=== PATIENT | female | born 1945 | race Caucasian/White ===

== ENCOUNTER 2021-11-16 02:32 | Inpatient (IN) | payer OTHER ==
[2021-11-16] MEDS ORDERED: FUROSEMIDE 40 MG/4 ML INJECTABLE VIAL IVPUSH ONE ×2 (03:17→10:59)
[2021-11-16 03:50] LABS: BASO % 0.1 % (0-2.0); EOS % 1.1 % (0-4.5); HEMATOCRIT 28.4 % (32.4-45.2); HEMOGLOBIN 9.5 GM/dL (10.7-15.3); LYMPH % 19.3 % (8-40); MCH 27.7 pg (25.7-33.7); MCHC 33.5 g/dl (32.0-36.0); MEAN CELL VOLUME 82.9 fl (80-96); MEAN PLT VOLUME 7.5 fl (7.5-11.1); NEUT % 70.5 % (42.8-82.8); PLATELET COUNT 297 10^3/uL (134-434); RBC 3.43 M/mm3 (3.60-5.2); RDW 17.1 % (11.6-15.6)
[2021-11-16] MEDS ORDERED: FUROSEMIDE 40 MG/4 ML INJECTABLE VIAL ONE ×2 (03:51→09:25)
[2021-11-16 04:01] LABS: INR 1.2 (0.83-1.09); PROTHROMBIN TIME (PATIENT) 13.8 SEC (9.7-13.0)
[2021-11-16 04:12] LABS: CHLORIDE 103 mmol/L (98-107); SODIUM 139 mmol/L (136-145)
[2021-11-16 04:14] LABS: ALBUMIN 3.1 g/dl (3.4-5.0); ANION GAP 6 MMOL/L (8-16); BLOOD UREA NITROGEN 9.7 mg/dL (7-18); CALCIUM 9.2 mg/dL (8.5-10.1); CO2 30 mmol/L (21-32); GLUCOSE,RANDOM 216 mg/dL (74-106)
[2021-11-16 04:17] LABS: SGOT/AST 22 U/L (15-37); SGPT/ALT 39 U/L (13-61)
[2021-11-16 04:18] LABS: CREATININE 0.7 mg/dL (0.55-1.3)
[2021-11-16 04:19] LABS: BILIRUBIN,TOTAL 0.9 mg/dL (0.2-1); TOT PROT 6.9 g/dl (6.4-8.2)
[2021-11-16 04:20] LABS: ALK PHOS 43 U/L (45-117)
[2021-11-16 04:22] LABS: N-TERMINAL BNP 3973.8 pg/ml (5-450)
[2021-11-16] MEDS ORDERED: ASPIRIN 81 MG CHEWABLE TABLETS PO ONE (04:44)
[2021-11-16] MEDS ORDERED: ASPIRIN 81 MG CHEWABLE TABLETS ONE (04:47)
[2021-11-16] MEDS ORDERED: ATORVASTATIN CA 80 MG TABLET (FP) PO ONE (05:14)
[2021-11-16] MEDS ORDERED: ATORVASTATIN CA 80 MG TABLET (FP) ONE (05:22)
[2021-11-16 09:24] LABS: EPI CELLS 6 /uL (0-25.1); HYALINE CASTS 1 /uL (0-3.1); URINE APPEARANCE CLEAR; URINE BACTERIA 27 /uL (0-1359); URINE BILIRUBIN NEGATIVE (NEGATIVE); URINE COLOR YELLOW; URINE GLUCOSE (UA) NEGATIVE (NEGATIVE); URINE KETONE NEGATIVE (NEGATIVE); URINE LEUK ESTERASE NEGATIVE (NEGATIVE); URINE NITRITE NEGATIVE (NEGATIVE); URINE PROTEIN 1+ (NEGATIVE); URINE RBC 16 /uL (0-23.9); URINE WBC 5 /uL (0-25.8)
[2021-11-16] MEDS ORDERED: ENOXAPARIN NA (PORCINE) 40 MG/0.4 ML DISP.SYRIN SQ ONE (09:25)
[2021-11-16] MEDS: INSULIN SLIDING SCALE (NOVOLOG) 1 VIAL SQ SCH ×3 (16:55→23:26)
[2021-11-17 01:11] VITALS: BMI 29.4
[2021-11-17] MEDS: INSULIN SLIDING SCALE (NOVOLOG) 1 VIAL SQ SCH ×4 (06:24→21:24)
[2021-11-17 09:16] LABS: BASO % 0.3 % (0-2.0); EOS % 1.8 % (0-4.5); HEMATOCRIT 26.4 % (32.4-45.2); HEMOGLOBIN 9.1 GM/dL (10.7-15.3); LYMPH % 14.2 % (8-40); MCH 27.9 pg (25.7-33.7); MCHC 34.5 g/dl (32.0-36.0); MEAN PLT VOLUME 7.8 fl (7.5-11.1); NEUT % 73.7 % (42.8-82.8); PLATELET COUNT 315 10^3/uL (134-434); RBC 3.26 M/mm3 (3.60-5.2); RDW 16.4 % (11.6-15.6); WHITE BLOOD COUNT 6.8 K/mm3 (4.0-10.0)
[2021-11-17 09:20] LABS: INR 1.11 (0.83-1.09); PROTHROMBIN TIME (PATIENT) 12.8 SEC (9.7-13.0)
[2021-11-17 09:23] LABS: ACTIVATED PTT 26.7 SECONDS (25.2-36.5)
[2021-11-17] MEDS: FUROSEMIDE 40 MG/4 ML INJECTABLE VIAL IVPUSH SCH (09:41)
[2021-11-17] MEDS: ASPIRIN COATED 81 MG TABLET.EC PO SCH (09:41)
[2021-11-17] MEDS: ENOXAPARIN NA (PORCINE) 40 MG/0.4 ML DISP.SYRIN SQ SCH (09:41)
[2021-11-17 09:55] LABS: ALBUMIN 2.7 g/dl (3.4-5.0); BLOOD UREA NITROGEN 9.9 mg/dL (7-18); CALCIUM 9.2 mg/dL (8.5-10.1)
[2021-11-17 09:57] LABS: PHOSPHOROUS 3.9 mg/dL (2.5-4.9)
[2021-11-17 09:58] LABS: BILIRUBIN,TOTAL 0.6 mg/dL (0.2-1)
[2021-11-17 09:59] LABS: CREATININE 0.7 mg/dL (0.55-1.3)
[2021-11-17 10:01] LABS: TOT PROT 6.4 g/dl (6.4-8.2)
[2021-11-17] MEDS ORDERED: POTASSIUM CHLORIDE TABS 20 MEQ TABLET.ER (FP) PO ONE ×2 (11:28→17:00)
[2021-11-17] MEDS ORDERED: IRON SUCROSE INJECTION 200 MG in SODIUM CHLORIDE 90 ML IVPB ONE (12:00)
[2021-11-17] MEDS: ATORVASTATIN CA 40 MG TABLET (FP) PO SCH (21:24)
[2021-11-18] MEDS: INSULIN SLIDING SCALE (NOVOLOG) 1 VIAL SQ SCH ×4 (06:48→21:14)
[2021-11-18 07:44] LABS: HEMATOCRIT 27.4 % (32.4-45.2); HEMOGLOBIN 9.2 GM/dL (10.7-15.3); MCH 27.2 pg (25.7-33.7); MCHC 33.6 g/dl (32.0-36.0); PLATELET COUNT 365 10^3/uL (134-434); RBC 3.38 M/mm3 (3.60-5.2); RDW 16.5 % (11.6-15.6); WHITE BLOOD COUNT 7.3 K/mm3 (4.0-10.0)
[2021-11-18 07:57] LABS: BLOOD UREA NITROGEN 10.1 mg/dL (7-18); CALCIUM 9.5 mg/dL (8.5-10.1); MAGNESIUM 1.9 mg/dL (1.8-2.4)
[2021-11-18 08:00] LABS: CREATININE 0.7 mg/dL (0.55-1.3)
[2021-11-18] MEDS: FUROSEMIDE 40 MG/4 ML INJECTABLE VIAL IVPUSH SCH (09:49)
[2021-11-18] MEDS: ASPIRIN COATED 81 MG TABLET.EC PO SCH (09:49)
[2021-11-18] MEDS: ENOXAPARIN NA (PORCINE) 40 MG/0.4 ML DISP.SYRIN SQ SCH (09:49)
[2021-11-18] MEDS ORDERED: IRON SUCROSE INJECTION 200 MG in SODIUM CHLORIDE 90 ML IVPB ONE (17:00)
[2021-11-18] MEDS: ATORVASTATIN CA 40 MG TABLET (FP) PO SCH (21:10)
[2021-11-19] MEDS: INSULIN SLIDING SCALE (NOVOLOG) 1 VIAL SQ SCH ×4 (06:30→22:13)
[2021-11-19 07:35] LABS: BASO % 0.3 % (0-2.0); EOS % 1.7 % (0-4.5); HEMATOCRIT 27.3 % (32.4-45.2); HEMOGLOBIN 9.5 GM/dL (10.7-15.3); LYMPH % 16.2 % (8-40); MCH 28.1 pg (25.7-33.7); MCHC 34.8 g/dl (32.0-36.0); MEAN CELL VOLUME 80.6 fl (80-96); MEAN PLT VOLUME 7.5 fl (7.5-11.1); MONO % 10.3 % (3.8-10.2); NEUT % 71.5 % (42.8-82.8); PLATELET COUNT 384 10^3/uL (134-434); RBC 3.39 M/mm3 (3.60-5.2); RDW 16.5 % (11.6-15.6); WHITE BLOOD COUNT 7.5 K/mm3 (4.0-10.0)
[2021-11-19 08:06] LABS: CALCIUM 9.2 mg/dL (8.5-10.1)
[2021-11-19 08:07] LABS: ALBUMIN 2.6 g/dl (3.4-5.0); BLOOD UREA NITROGEN 14.7 mg/dL (7-18); MAGNESIUM 2.1 mg/dL (1.8-2.4)
[2021-11-19 08:10] LABS: CREATININE 0.7 mg/dL (0.55-1.3)
[2021-11-19 08:12] LABS: BILIRUBIN,TOTAL 0.6 mg/dL (0.2-1); TOT PROT 6.4 g/dl (6.4-8.2)
[2021-11-19] MEDS: ASPIRIN COATED 81 MG TABLET.EC PO SCH (10:33)
[2021-11-19] MEDS: FUROSEMIDE 40 MG/4 ML INJECTABLE VIAL IVPUSH SCH (10:37)
[2021-11-19] MEDS: ENOXAPARIN NA (PORCINE) 40 MG/0.4 ML DISP.SYRIN SQ SCH (10:37)
[2021-11-19] MEDS: ATORVASTATIN CA 40 MG TABLET (FP) PO SCH (22:12)
[2021-11-20] MEDS: INSULIN SLIDING SCALE (NOVOLOG) 1 VIAL SQ SCH ×4 (06:08→21:46)
[2021-11-20] MEDS: ASPIRIN COATED 81 MG TABLET.EC PO SCH (09:59)
[2021-11-20] MEDS: ENOXAPARIN NA (PORCINE) 40 MG/0.4 ML DISP.SYRIN SQ SCH (09:59)
[2021-11-20] MEDS: FUROSEMIDE 40 MG/4 ML INJECTABLE VIAL IVPUSH SCH (09:59)
[2021-11-20] MEDS: FAMOTIDINE 20 MG/50 ML IVPB 20 MG/50 ML MG IVPB SCH ×2 (12:00→21:46)
[2021-11-20 12:43] LABS: BASO % 0.2 % (0-2.0); EOS % 1.3 % (0-4.5); HEMATOCRIT 28.4 % (32.4-45.2); HEMOGLOBIN 9.6 GM/dL (10.7-15.3); LYMPH % 20.2 % (8-40); MCH 27.6 pg (25.7-33.7); MCHC 33.8 g/dl (32.0-36.0); MEAN CELL VOLUME 81.5 fl (80-96); MEAN PLT VOLUME 7.9 fl (7.5-11.1); MONO % 8.9 % (3.8-10.2); NEUT % 69.4 % (42.8-82.8); PLATELET COUNT 496 10^3/uL (134-434); RBC 3.48 M/mm3 (3.60-5.2); RDW 16.8 % (11.6-15.6); WHITE BLOOD COUNT 7.7 K/mm3 (4.0-10.0)
[2021-11-20 13:03] LABS: CALCIUM 9.5 mg/dL (8.5-10.1)
[2021-11-20 13:05] LABS: ALBUMIN 2.9 g/dl (3.4-5.0); BLOOD UREA NITROGEN 15.2 mg/dL (7-18); MAGNESIUM 2.3 mg/dL (1.8-2.4)
[2021-11-20 13:07] LABS: CREATININE 0.8 mg/dL (0.55-1.3)
[2021-11-20 13:08] LABS: BILIRUBIN,TOTAL 0.5 mg/dL (0.2-1); TOT PROT 7.2 g/dl (6.4-8.2)
[2021-11-20] MEDS: metFORMIN HCL 500 MG TABLET (FP) PO SCH (16:53)
[2021-11-20] MEDS: ATORVASTATIN CA 40 MG TABLET (FP) PO SCH (21:45)
[2021-11-21] MEDS: metFORMIN HCL 500 MG TABLET (FP) PO SCH (06:07)
[2021-11-21] MEDS: INSULIN SLIDING SCALE (NOVOLOG) 1 VIAL SQ SCH ×4 (06:07→22:00)
[2021-11-21 08:17] LABS: BASO % 0.5 % (0-2.0); EOS % 1.9 % (0-4.5); HEMATOCRIT 27.4 % (32.4-45.2); HEMOGLOBIN 9.1 GM/dL (10.7-15.3); LYMPH % 18.2 % (8-40); MCH 27.1 pg (25.7-33.7); MCHC 33.3 g/dl (32.0-36.0); MEAN CELL VOLUME 81.3 fl (80-96); MONO % 10.6 % (3.8-10.2); NEUT % 68.8 % (42.8-82.8); PLATELET COUNT 485 10^3/uL (134-434); RBC 3.37 M/mm3 (3.60-5.2); RDW 16.6 % (11.6-15.6); WHITE BLOOD COUNT 7.8 K/mm3 (4.0-10.0)
[2021-11-21 08:47] LABS: ALBUMIN 2.8 g/dl (3.4-5.0); BLOOD UREA NITROGEN 17.9 mg/dL (7-18); CALCIUM 9.4 mg/dL (8.5-10.1); MAGNESIUM 2.2 mg/dL (1.8-2.4)
[2021-11-21 08:49] LABS: CREATININE 0.8 mg/dL (0.55-1.3)
[2021-11-21 08:52] LABS: BILIRUBIN,TOTAL 0.6 mg/dL (0.2-1); TOT PROT 6.8 g/dl (6.4-8.2)
[2021-11-21] MEDS ORDERED: REGADENOSON 0.4 MG/5 ML PRE-FILLED SYRINGE IVPUSH ONE ×2 (09:33→10:00)
[2021-11-21] MEDS: FAMOTIDINE 20 MG/50 ML IVPB 20 MG/50 ML MG IVPB SCH ×2 (13:01→22:00)
[2021-11-21] MEDS: ASPIRIN COATED 81 MG TABLET.EC PO SCH (13:01)
[2021-11-21] MEDS: ENOXAPARIN NA (PORCINE) 40 MG/0.4 ML DISP.SYRIN SQ SCH (13:02)
[2021-11-21] MEDS: FUROSEMIDE 40 MG/4 ML INJECTABLE VIAL IVPUSH SCH (13:02)
[2021-11-21] MEDS ORDERED: FUROSEMIDE 40 MG TABLET (FP) PO SCH (14:00)
[2021-11-21] MEDS ORDERED: FUROSEMIDE 40 MG/4 ML INJECTABLE VIAL IVPUSH ONE (15:42)
[2021-11-21] MEDS: ATORVASTATIN CA 40 MG TABLET (FP) PO SCH (22:00)
[2021-11-22] MEDS: INSULIN SLIDING SCALE (NOVOLOG) 1 VIAL SQ SCH ×4 (06:16→22:17)
[2021-11-22] MEDS: FUROSEMIDE 40 MG/4 ML INJECTABLE VIAL IVPUSH SCH ×2 (06:16→14:48)
[2021-11-22 07:43] LABS: BASO % 0.7 % (0-2.0); EOS % 0.8 % (0-4.5); HEMATOCRIT 29.3 % (32.4-45.2); HEMOGLOBIN 9.6 GM/dL (10.7-15.3); LYMPH % 16.1 % (8-40); MCH 26.8 pg (25.7-33.7); MCHC 32.8 g/dl (32.0-36.0); MEAN CELL VOLUME 81.6 fl (80-96); MEAN PLT VOLUME 7.8 fl (7.5-11.1); MONO % 10.2 % (3.8-10.2); NEUT % 72.2 % (42.8-82.8); PLATELET COUNT 566 10^3/uL (134-434); RBC 3.59 M/mm3 (3.60-5.2); RDW 16.8 % (11.6-15.6); WHITE BLOOD COUNT 8.2 K/mm3 (4.0-10.0)
[2021-11-22 07:57] LABS: ALBUMIN 2.8 g/dl (3.4-5.0); BLOOD UREA NITROGEN 16.5 mg/dL (7-18); CALCIUM 9.6 mg/dL (8.5-10.1); MAGNESIUM 2.1 mg/dL (1.8-2.4)
[2021-11-22 08:00] LABS: CREATININE 0.9 mg/dL (0.55-1.3)
[2021-11-22 08:03] LABS: BILIRUBIN,TOTAL 0.6 mg/dL (0.2-1); TOT PROT 7.2 g/dl (6.4-8.2)
[2021-11-22] MEDS: ASPIRIN COATED 81 MG TABLET.EC PO SCH (09:35)
[2021-11-22] MEDS: ENOXAPARIN NA (PORCINE) 40 MG/0.4 ML DISP.SYRIN SQ SCH (09:35)
[2021-11-22] MEDS: FAMOTIDINE 20 MG/50 ML IVPB 20 MG/50 ML MG IVPB SCH ×2 (09:35→22:17)
[2021-11-22] MEDS ORDERED: FUROSEMIDE 40 MG/4 ML INJECTABLE VIAL IVPUSH SCH (10:00)
[2021-11-22 10:51] LABS: N-TERMINAL BNP 700.9 pg/ml (5-450)
[2021-11-22] MEDS: SPIRONOLACTONE 25 MG TABLET PO SCH (11:21)
[2021-11-22] MEDS: ATORVASTATIN CA 40 MG TABLET (FP) PO SCH (22:17)
[2021-11-22] MEDS ORDERED: ACETAMINOPHEN 1000 MG/100 ML BAG IVPB ONE (22:41)
[2021-11-22] MEDS: METHIMAZOLE 5 MG TABLET PO SCH (22:59)
[2021-11-23] MEDS: FUROSEMIDE 40 MG/4 ML INJECTABLE VIAL IVPUSH SCH ×2 (05:57→17:42)
[2021-11-23] MEDS: INSULIN SLIDING SCALE (NOVOLOG) 1 VIAL SQ SCH ×4 (06:08→21:43)
[2021-11-23] MEDS: ASPIRIN COATED 81 MG TABLET.EC PO SCH (10:34)
[2021-11-23] MEDS: METHIMAZOLE 5 MG TABLET PO SCH ×2 (10:34→21:43)
[2021-11-23] MEDS: FAMOTIDINE 20 MG/50 ML IVPB 20 MG/50 ML MG IVPB SCH ×2 (10:34→21:43)
[2021-11-23] MEDS: ENOXAPARIN NA (PORCINE) 40 MG/0.4 ML DISP.SYRIN SQ SCH (10:34)
[2021-11-23] MEDS: SPIRONOLACTONE 25 MG TABLET PO SCH (10:34)
[2021-11-23 13:12] LABS: BASO % 0.4 % (0-2.0); EOS % 1.1 % (0-4.5); HEMOGLOBIN 8.8 GM/dL (10.7-15.3); LYMPH % 21.1 % (8-40); MCH 26.9 pg (25.7-33.7); MCHC 32.6 g/dl (32.0-36.0); MEAN CELL VOLUME 82.4 fl (80-96); MEAN PLT VOLUME 7.9 fl (7.5-11.1); MONO % 9.1 % (3.8-10.2); NEUT % 68.3 % (42.8-82.8); PLATELET COUNT 552 10^3/uL (134-434); RBC 3.27 M/mm3 (3.60-5.2); RDW 16.5 % (11.6-15.6); WHITE BLOOD COUNT 7.9 K/mm3 (4.0-10.0)
[2021-11-23 15:09] LABS: ALBUMIN 2.6 g/dl (3.4-5.0); CALCIUM 9.3 mg/dL (8.5-10.1); MAGNESIUM 2.4 mg/dL (1.8-2.4)
[2021-11-23 15:10] LABS: BLOOD UREA NITROGEN 13.5 mg/dL (7-18)
[2021-11-23 15:13] LABS: CREATININE 0.8 mg/dL (0.55-1.3)
[2021-11-23 15:14] LABS: BILIRUBIN,TOTAL 0.8 mg/dL (0.2-1); TOT PROT 7.1 g/dl (6.4-8.2)
[2021-11-23] MEDS: metFORMIN HCL 500 MG TABLET (FP) PO SCH (17:43)
[2021-11-23] MEDS: ATORVASTATIN CA 40 MG TABLET (FP) PO SCH (21:43)
[2021-11-24] MEDS: FUROSEMIDE 40 MG/4 ML INJECTABLE VIAL IVPUSH SCH ×2 (06:52→14:08)
[2021-11-24] MEDS: metFORMIN HCL 500 MG TABLET (FP) PO SCH ×2 (06:52→17:43)
[2021-11-24] MEDS: INSULIN SLIDING SCALE (NOVOLOG) 1 VIAL SQ SCH ×4 (06:53→22:52)
[2021-11-24 07:44] LABS: CALCIUM 9.3 mg/dL (8.5-10.1)
[2021-11-24 07:45] LABS: ALBUMIN 2.7 g/dl (3.4-5.0); MAGNESIUM 2.2 mg/dL (1.8-2.4)
[2021-11-24 07:48] LABS: BASO % 1.1 % (0-2.0); CREATININE 0.9 mg/dL (0.55-1.3); EOS % 1.4 % (0-4.5); HEMATOCRIT 26.4 % (32.4-45.2); HEMOGLOBIN 8.8 GM/dL (10.7-15.3); LYMPH % 18.1 % (8-40); MCHC 33.2 g/dl (32.0-36.0); MEAN CELL VOLUME 81.5 fl (80-96); MEAN PLT VOLUME 8.3 fl (7.5-11.1); MONO % 8.8 % (3.8-10.2); NEUT % 70.6 % (42.8-82.8); PLATELET COUNT 550 10^3/uL (134-434); RBC 3.24 M/mm3 (3.60-5.2); RDW 16.6 % (11.6-15.6); WHITE BLOOD COUNT 7.5 K/mm3 (4.0-10.0)
[2021-11-24 07:50] LABS: BILIRUBIN,TOTAL 0.5 mg/dL (0.2-1); TOT PROT 7.1 g/dl (6.4-8.2)
[2021-11-24] MEDS: FAMOTIDINE 20 MG/50 ML IVPB 20 MG/50 ML MG IVPB SCH ×3 (10:12→23:30)
[2021-11-24] MEDS: SPIRONOLACTONE 25 MG TABLET PO SCH (10:12)
[2021-11-24] MEDS: ASPIRIN COATED 81 MG TABLET.EC PO SCH (10:12)
[2021-11-24] MEDS: METHIMAZOLE 5 MG TABLET PO SCH ×2 (10:12→22:40)
[2021-11-24] MEDS: ENOXAPARIN NA (PORCINE) 40 MG/0.4 ML DISP.SYRIN SQ SCH (10:52)
[2021-11-24] MEDS: FERROUS SO4 325 MG TABLET (FP) PO SCH (17:43)
[2021-11-24] MEDS: ATORVASTATIN CA 40 MG TABLET (FP) PO SCH (22:34)
[2021-11-24] MEDS ORDERED: INSULIN (NOVOLOG) ASPART 100 UNITS/ML 10ML VIAL ONE (22:52)
[2021-11-25] MEDS ORDERED: FUROSEMIDE 40 MG TABLET (FP) PO SCH (06:00)
[2021-11-25] MEDS: metFORMIN HCL 500 MG TABLET (FP) PO SCH (07:01)
[2021-11-25] MEDS: INSULIN SLIDING SCALE (NOVOLOG) 1 VIAL SQ SCH ×2 (07:02→11:29)
[2021-11-25 07:06] VITALS: RESP 18
[2021-11-25] MEDS: ENOXAPARIN NA (PORCINE) 40 MG/0.4 ML DISP.SYRIN SQ SCH (09:15)
[2021-11-25] MEDS: METHIMAZOLE 5 MG TABLET PO SCH (09:16)
[2021-11-25] MEDS: FAMOTIDINE 20 MG/50 ML IVPB 20 MG/50 ML MG IVPB SCH (09:16)
[2021-11-25] MEDS: ASPIRIN COATED 81 MG TABLET.EC PO SCH (09:16)
[2021-11-25] MEDS: SPIRONOLACTONE 25 MG TABLET PO SCH (09:16)
[2021-11-25] MEDS: FERROUS SO4 325 MG TABLET (FP) PO SCH ×2 (09:16→11:29)
[2021-11-25 10:18] VITALS: BP 143/71; PULSE 72; TEMP 98.2
== END 2021-11-25 14:05 | disposition home or self-care (01) | DRG 291 ==
LOC: JER 02:32 → JERBED 04:47 → J4W 11-17 00:41 → J7W 11-24 12:43
PROVIDERS: ADMIT Hospitalist; ATTEND Nurse Practitioner Family
DX: I11.0 Hypertensive heart disease with heart failure (principal); I50.33 Acute on chronic diastolic (congestive) heart failure; I24.8 Other forms of acute ischemic heart disease; E78.5 Hyperlipidemia, unspecified; E11.9 Type 2 diabetes mellitus without complications; D50.9 Iron deficiency anemia, unspecified; E87.6 Hypokalemia; R77.8 Other specified abnormalities of plasma proteins; E05.90 Thyrotoxicosis, unspecified without thyrotoxic crisis or storm
CPT/HCPCS: 0241U-QW; 36415; 71045-TC-FY; 71046-TC-FY; 71275-TC; 78452-TC; 80048; 80053; 80061; 81003; 82728; 82962; 83036; 83520; 83540; 83550; 83735; 83880; 84100; 84439; 84443; 84480; 84484; 85025; 85027; 85045; 85379; 85610; 85730; 86800; 86850; 86900; 86901; 93005; 93010; 93017; 93306-TC; 94010; 94761; 97116-GP; 97162-GP; 99285-25; A9502; J1756; J2785; Q9967